=== PATIENT | male | born 1965 | race Caucasian/White ===

== ENCOUNTER 2018-03-28 07:29 | Observation (INO) | payer BC ==
--- NOTE | 2018-03-28 10:22 | ECHOF ---
Referral Reason:cp MEASUREMENTS -------- HEIGHT: 157.5 cm WEIGHT: 81.7 kg BP: RVIDd: 3.1 cm (< 3.3) IVSd: 1.2 cm (0.6 - 1.1) LVIDd: 4.9 cm (3.9 - 5.3) LVPWd: 1.1 cm (0.6 - 1.1) IVSs: 1.6 cm LVIDs: 3.8 cm LVPWs: 1.4 cm LA Diam: 3.5 cm (2.7 - 3.8) LAESV Index (A-L): 24.96 ml/m Ao Diam: 3.8 cm (2.0 - 3.7) AV Cusp: 2.8 cm (1.5 - 2.6) LA Diam: 3.8 cm (2.7 - 3.8) MV EXCURSION: 15.965 mm (> 18.000) MV EF SLOPE: 86 mm/s (70 - 150) EPSS: 0.4 cm MV E Pedro: 0.66 m/s MV DecT: 181 ms MV A Pedro: 0.88 m/s MV E/A Ratio: 0.74 RAP: 5.00 mmHg RVSP: 17.90 mmHg FINDINGS -------- Sinus rhythm. This was a technically adequate study. The left ventricular size is normal. There is mild concentric left ventricular hypertrophy. Overa ll left ventricular systolic function is normal with, an EF between 55 - 60 %. The right ventricle is normal in size. The left atrial size is normal. The right atrial size is normal. There is mild aortic valve sclerosis. The mitral valve is normal. There is trace to mild mitral regurgitation. Mild tricuspid regurgitation present. There is no evidence of pulmonary hypertension. The right v entricular systolic pressure, as measured by Doppler, is 17.90mmHg. There is no pulmonic regurgitation present. The aortic root size is normal. Echo free space represents a pericardial fat pad. CONCLUSIONS -------- 1. Sinus rhythm. 2. The left ventricular size is normal. 3. There is mild concentric left ventricular hypertrophy. 4. Overall left ventricular systolic function is normal with, an EF between 55 - 60 %. 5. The left atrial size is normal. 6. There is mild aortic valve sclerosis. 7. There is trace to mild mitral regurgitation. 8. Mild tricuspid regurgitation present. 9. There is no evidence of pulmonary hypertension. 10. There is no pulmonic regurgitation present. 11. The aortic root size is normal. 12. Echo free space represents a pericardial fat pad. LINER REPLACER: Juliette Galeana RDCS
--- NOTE | 2018-03-28 12:11 | P.CRDCN ---
History of Present Illness History of present illness: Mr. Rosas is a pleasant 52-year-old male past medical hsitory significant for dyslipidemia, recent diagnosis of prostate cancer and chronic nicotine dependence. He denies history of coronary artery disease, hypertension or diabetes mellitus. He has seen Dr. Dubose in the past for history of PFO and underwent a GILA revealing evidence of normal systolic function with a PFO, right to left shunt with this although maneuver. Stress echocardiogram at that time revealed excellent exercise tolerance with normal EKG response to exercise and normal wall thickening and motion. He also underwent bilateral carotid duplex which was normal. We have been asked to see him in consultation for chest pain. Yesterday while cutting the grass he was extremely diaphoretic and then started feeling a discomfort in the left shoulder radiating mildly into the left precordial region. He stopped cutting the grass and sat down. The discomfort persisted for approximately 45 minutes and subsided on its own. He denies associated shortness of breath, dizziness, nausea, vomiting or palpitations. Since that subsided he continued cutting the grass. For the rest of the day he had no further symptoms of chest discomfort or shoulder discomfort. He woke up this morning feeling a discomfort in his chest again with radiation down into the left arm. He was short of breath, dizzy and nauseated. He became concerned and went to the hospital for evaluation. He presented to [facility] where EKG and blood work was obtained. He was transferred here for further cardiac evaluation. EKG on arrival reveals sinus mechanism with nonspecific ST abnormalities and T- wave inversion in anterior leads, no evidence of acute ST or T wave abnormalities noted when compared to old EKG from 2015. Laboratory data reviewed from [facility], hgb 16.4 plt 194 potassium 3.2, creatinine 0.9, magnesium 1.9, sodium 141 and cardiac enzymes negative x1. He takes no daily cardiac medications. Review of Systems At the time of my exam: CONSTITUTIONAL: Denies fever. Denies chills. EYES: Denies blurred vision. Denies vision changes. Denies eye pain. EARS, NOSE, MOUTH & THROAT: Denies headache. Denies sore throat. Denies ear pain. CARDIOVASCULAR: Denies chest pain. Denies shortness of breath. Denies orthopnea. Denies PND. Denies palpitations. RESPIRATORY: Denies cough. GASTROINTESTINAL: Denies abdominal pain. Denies diarrhea. Denies constipation. Denies nausea. Denies vomiting. MUSCULOSKELETAL: Denies myalgias. INTEGUMENTARY: Denies pruitis. Denies rash. NEUROLOGIC: Denies numbness. Denies tingling. Denies weakness. PSYCHIATRIC: Denies anxiety. Denies depression. ENDOCRINE: Denies fatigue. Denies weight change. Denies polydipsia. Denies polyurina. GENITOURINARY: Denies burning, hematuria or urgency with micturation. HEMATOLOGIC: Denies history of anemia. Denies bleeding. Past Medical History - Past Family History Father Family Medical History: COPD Additional Family Medical History / Comment(s): Father from emphysema Mother Family Medical History: No Reported History Additional Family Medical History / Comment(s): Mother is healthy. Medications and Allergies Home Medications Medication Instructions Recorded Confirmed Type Cholecalciferol (Vitamin D3) 2,000 unit PO BID 03/28/18 03/28/18 History [Vitamin D3] Prostate Plus 1 tab PO BID 03/28/18 03/28/18 History Allergies Allergy/AdvReac Type Severity Reaction Status Date / Time No Known Allergies Allergy Unverified 03/28/18 08:48 Physical Exam Blood pressure 119/68 heart rate 52 afebrile and maintaining oxygen saturation on room air. GENERAL: This is a 52-year-old male in no apparent distress at the time of my examination. HEENT: Head is atraumatic, normocephalic. Pupils are equal, round. Sclerae anicteric. Conjunctivae are clear. Mucous membranes of the mouth are moist. Neck is supple. There is no jugular venous distention. No carotid bruit is heard. LUNGS: Clear to auscultation no wheezes, rales or rhonchi. No chest wall tenderness is noted on palpation or with deep breathing. HEART: Regular rate and rhythm with murmur at the apex, no rubs or gallops. S1 and S2 heard. ABDOMEN: Soft, nontender. Bowel sounds are heard. No organomegaly noted. EXTREMITIES: No evidence of peripheral edema and no calf tenderness noted. VASCULAR: Radial and dorsalis pedis pulses palpated, no evidence of clubbing. NEUROLOGIC: Patient is awake, alert and oriented x3. Assessment and Plan Assessment: ASSESSMENT Chest pain, atypical. Dyslipidemia Prostate cancer, diagnosed a week and a half ago Chronic nicotine dependence PLAN Obtain EKG and stat troponin to rule out an acute event. If negative, we will order a stress echocardiogram to assess for stress inducted ischemia. 2D echocardiogram and doppler study ordered and reviewed reveals preserved LV systolic function with EF 55-60% and mild TR. Smoking cessation recommended. Check lipid panel. If stress test is normal he is stable from a cardiac perspective. Pain may be related to musckuloskeletal strain. Follow up with Dr. Dubose in 2-3 weeks. Thank you kindly for this consultation. Nurse Practitioner note has been reviewed, I agree with a documented findings and plan of care. Patient was seen and examined.
[2018-03-28 12:13] VITALS: RESP 16
[2018-03-28 12:14] VITALS: BP 110/67; PULSE 58; TEMP 98.2
[2018-03-28 12:14] LABS: Cholesterol 194 mg/dL (<200); HDL Cholesterol 48 mg/dL (40-60); LDL Cholesterol,Calculated 126 mg/dL (0-99); Triglycerides 100 mg/dL (<150)
--- NOTE | 2018-03-28 14:06 | ECHOS ---
STRESS ECHOCARDIOGRAM INDICATIONS: Chest pain. BASELINE HEART RATE: 52 BASELINE BLOOD PRESSURE: 119/68 MAXIMUM HEART RATE: 147 MAXIMUM BLOOD PRESSURE: 155/83 85% MPHR: 143 100% MPHR: 168 METS: 13.5 MAXIMUM STAGE REACHED: 5 TOTAL EXERCISE TIME: 13:00 CLINICAL INFORMATION: Baseline rhythm is sinus mechanism, rate 52, normal axis and intervals, poor R-wave progression, cannot exclude anteroseptal myocardial infarction. Baseline blood pressure 119/68 mmHg. Patient exercised on Timothy protocol for 13 minute reaching peak rate 147 beats per minute which is equal to 87% maximum predicted heart rate. Peak blood pressure 155/83 mmHg. Test was terminated due to fatigue. There was no chest pain. Electrocardiographic monitoring revealed no evidence of diagnostic ischemic ST deviation. FINDINGS: Baseline echocardiogram revealed normal function at peak exercise. There was normal wall motion augmentation with no hypokinesis or dyskinesis. CONCLUSION: 1. Excellent exercise tolerance with normal electrocardiographic response to stress test. 2. Normal stress echocardiogram with no evidence of stress-induced ischemia. MMODL / IJN: [id number] /
--- NOTE | 2018-03-28 16:06 | HP ---
HISTORY AND PHYSICAL DATE OF SERVICE: 03/28/18. PRESENT COMPLAINT: Chest pain. HISTORY OF PRESENTING COMPLAINT: A very pleasant 52-year-old patient of Dr. Ahn out of [facility]. The patient 2 weeks ago was diagnosed with prostate cancer with a PSA of 4.5. The patient is getting another radiation opinion and surgical opinion. The patient also got vitamin D deficiency. The patient follows with Dr. Bae down on [address] for his prostate issue. Last night the patient was mowing the lawn for about a hour and a half, then developed some left-sided chest pain and then went inside. This morning patient felt dizzy, lightheaded, some more chest pain, came down, going down his left arm. The patient's symptoms lasted for a few hours. The patient was transferred down to [facility] from there he was transferred down here. The patient's symptoms after a few hours actually then abated. The patient was accepted her by Dr. Sim from Cardiology. The patient's is present with him during the interview process. REVIEW OF SYSTEMS: CONSTITUTIONAL: None. HEENT: None. CARDIOVASCULAR: As above. GASTROINTESTINAL: None. GENITOURINARY: None. MUSCULOSKELETAL: None. DERMATOLOGICAL, HEMATOLOGIC, LYMPHATIC: None. PSYCHIATRY: None. NEUROLOGICAL: None. PAST MEDICAL HISTORY: Prostate cancer, PSA 4.5, , vitamin D deficiency. PAST SURGICAL HISTORY: Prostate biopsy, colonoscopy, vasectomy. 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 Smoked less than a pack a day close to 36 years, , alcohol occasionally. FAMILY HISTORY: Father had emphysema. HOME MEDICATIONS: 1. Prostate +1 tab p.o. b.i.d. 2. Vitamin D3 2000 units p.o. b.i.d. ALLERGIES: None. PHYSICAL EXAMINATION: Temperature 98.2, pulse 58, RR 16, blood pressure 110/67, pulse ox 98 percent on room air. GENERAL APPEARANCE: Average built sitting up not in distress. EYES: Pupils equal. Conjunctivae normal. HEENT: External appearance of nose and ears normal. Oral cavity normal. NECK: JVD not raised. Mass not palpable. RESPIRATORY: Effort, lungs are clear. CARDIOVASCULAR: 1st and 2nd sounds, no edema. ABDOMEN: Soft, nontender. Liver and spleen not palpable. LYMPHATIC: No lymph nodes palpable in neck or axillae. PSYCHIATRY: Alert and oriented x3. Mood and affect normal. NEUROLOGICAL: Pupils equal. Cranial nerves grossly intact. Power and sensation grossly intact. INVESTIGATIONS: LDL 126. EKG showed nonspecific ST changes and some T-wave slipped in anterior leads. ASSESSMENT: 1. Possible unstable angina. The patient's risk factors include smoking with cardiac sounding presentation. 2. Chronic nicotine dependence. Patient is a cigarette smoker. 3. Prostate cancer recently diagnosed, PSA 4.5. Further workup in place. PLAN: Cardiology was consulted and wanted a stress test. The patient is currently chest pain free. Smoking cessation counseling was done with the patient and the both and they were told about the adverse effects of the same. More than 3 minutes was spent on this aspect of the case. DEVONTE / KATIEN: [id number] /
== END 2018-03-28 15:39 | disposition home or self-care (01) ==
LOC: 3OBS 08:50
PROVIDERS: ADMIT Hospitalist; ATTEND Hospitalist
DX: R07.89 Other chest pain (principal); E78.5 Hyperlipidemia, unspecified; R61 Generalized hyperhidrosis; R06.02 Shortness of breath; R11.0 Nausea; R42 Dizziness and giddiness; C61 Malignant neoplasm of prostate; Q21.1 Atrial septal defect; E55.9 Vitamin D deficiency, unspecified; F17.210 Nicotine dependence, cigarettes, uncomplicated; Z98.52 Vasectomy status; Z82.5 Family history of asthma and other chronic lower respiratory diseases
CPT/HCPCS: 93306; 93351; 80061; 84484; G0378; G0379

== ENCOUNTER → 2022-02-13 | Outpatient (CLI) | payer BC ==
--- NOTE | 2022-02-17 15:55 | PE ---
Nuclear medicine PET/CT HISTORY: Lung carcinoma, R 91.1, initial No comparisons Patient received 10.4 mCi F-18 FDG intravenously and delayed scanning was performed from the skull ba se to the mid thighs Average mediastinal uptake SUV 1.7, average liver uptake SUV 2.2 Chest and neck: There is no evident supraclavicular or cervical adenopathy. No mediastinal, axillary, or hilar adenopathy. No suspicious uptake. There is a prevascular node which is not enlarged. Alva ry artery calcification is present. Some calcification also present through the aorta. Uptake at the level the palatine tonsil is felt likely to be physiologic. Left upper lobe lung nodule measures 9 mm . No associated uptake. There is no endobronchial lesion, pleural or pericardial effusion. Ascending aorta is aneurysmal at 4.7 cm. ABDOMEN: No suspicious uptake. No evident adrenal mass, no liver mass or retroperitoneal adenopathy. Liver shows low attenuation likely due to hepatic steatosis. There is no ascites. Prostate is enlarge d. Thickening of the urinary bladder wall may be due to chronic outlet obstruction, correlate. No pel ovidio adenopathy. Osseous structures show no suspicious uptake. IMPRESSION: Nodule in the left upper lobe is less than 1 cm in size, there may be lack of uptake on t he exam due to the size of lesion, follow-up to assess for stability. Ascending aortic aneurysm. Fabi nary artery disease. Hepatic steatosis.
== END | disposition home or self-care (01) ==
LOC: RADPETMAIN 12:47
PROVIDERS: ATTEND Internal Medicine Critical Care Medicine
DX: C34.92 Malignant neoplasm of unspecified part of left bronchus or lung (principal); I25.10 Atherosclerotic heart disease of native coronary artery without angina pectoris; K76.0 Fatty (change of) liver, not elsewhere classified
CPT/HCPCS: 78815; A9552